=== PATIENT | female | born 1940 | race Caucasian/White ===

== ENCOUNTER → 2017-02-22 | Outpatient (CLI) | payer MEDICARE ==
[2017-02-22 08:42] LABS: CHOL/HDL RATIO 2.6; LDL/HDL RATIO 1.4 (0.5-3.0); THYROID STIMULATING HORMONE 1.89 mIU/L (0.358-3.740)
== END ==
LOC: LAB 07:58
PROVIDERS: ATTEND Family Medicine
DX: E78.5 Hyperlipidemia, unspecified (principal); E55.9 Vitamin D deficiency, unspecified; R53.83 Other fatigue
CPT/HCPCS: 36415; 80061; 82306; 84443

== ENCOUNTER 2017-06-09 07:00 | Inpatient (IN) | payer MEDICARE ==
[~2017-06-09] VITALS: Ht 162.1 cm; Wt 54.9 kg
[2017-06-09] MEDS ORDERED: SODIUM CHLORIDE FLUSH 10ML SYR IVF ONE (07:30)
[2017-06-09] MEDS ORDERED: SODIUM CHLORIDE 0.9% 1,000ML IVBOLUS ONE (07:30)
[2017-06-09] MEDS ORDERED: ONDANSETRON ODT 4 MG ONE (08:10)
[2017-06-09] MEDS ORDERED: MORPHINE SULFATE 4 MG/ML, 1ML ONE ×2 (08:11→10:04)
[2017-06-09 08:14] LABS: BASOPHILS # (AUTO) 0.03 x10^3/uL (0-0.1); BASOPHILS % (AUTO) 0 % (0-1); EOSINOPHILS # (AUTO) 0.03 x10^3/uL (0-0.4); EOSINOPHILS % (AUTO) 0 % (1-7); LYMPHOCYTES # (AUTO) 2.34 x10^3/uL (1-3.4); LYMPHOCYTES % (AUTO) 32 % (22-44); MD NO; MEAN CORPUSCULAR HEMOGLOBIN 33.3 pg (27.0-34.8); MEAN CORPUSCULAR HGB CONC 33.4 g/dL (32.4-35.8); MEAN CORPUSCULAR VOLUME 99.8 fL (80-100); MEAN PLATELET VOLUME 9.7 fL (7.4-10.4); MONOCYTES # (AUTO) 0.35 x10^3/uL (0.2-0.8); MONOCYTES % (AUTO) 5 % (2-9); NEUTROPHILS # (AUTO) 4.65 x10^3/uL (1.8-6.8); NEUTROPHILS % (AUTO) 63 % (42-75); PLATELET COUNT 184 x10^3/uL (130-400); RED CELL DISTRIBUTION WIDTH 12.9 % (9.6-15.2)
[2017-06-09 08:16] LABS: INTERNATIONAL NORMALIZED RATIO 1.09 (0.93-1.1); PROTHROMBIN TIME 11.2 Seconds (9.6-11.5)
[2017-06-09 08:21] LABS: ANION GAP 10 mmol/L (5-15); CALCIUM 8.4 mg/dL (8.5-10.1); CHLORIDE 108 mmol/L (98-107)
[2017-06-09 08:24] LABS: ALANINE AMINOTRANSFERASE 18 U/L (12-78); ALKALINE PHOSPHATASE 51 U/L (45-117); BILIRUBIN,TOTAL 0.4 mg/dL (0.2-1.0); CREATININE 0.76 mg/dL (0.55-1.02); TOTAL PROTEIN 6.5 g/dL (6.4-8.2); TROPONIN I < 0.015 ng/mL (0.000-0.045)
[2017-06-09] MEDS ORDERED: morphine SULFATE 10 MG/ML, 1ML IVPush ONE ×2 (09:30→10:00)
[2017-06-09] MEDS ORDERED: ONDANSETRON ODT 4 MG PO ONE (10:00)
[2017-06-09] MEDS ORDERED: PROPOFOL 10 MG/ML, 20ML ONE ×2 (10:51→14:56)
[2017-06-09] MEDS ORDERED: FENTANYL PF 100 MCG/2ML ONE ×3 (10:51→16:38)
[2017-06-09 11:02] LABS: CLOSTRIDIUM DIFFICILE ANTIGEN NEGATIVE; CLOSTRIDIUM DIFFICILE TOXIN NEGATIVE (Negative)
[2017-06-09] MEDS ORDERED: TEMAZEPAM 15 MG CAPSULE PO PRN (12:00)
[2017-06-09] MEDS ORDERED: ACETAMINOPHEN 325 MG TABLET PO PRN ×2 (12:00→15:30)
[2017-06-09] MEDS ORDERED: morphine SULFATE 10 MG/ML, 1ML IVPush PRN (12:00)
[2017-06-09] MEDS ORDERED: ONDANSETRON 2MG/ML, 2ML IVPush PRN ×2 (12:00→15:30)
[2017-06-09] MEDS ORDERED: hydrALAzine 20 MG/ML, 1ML IVPush PRN (12:00)
[2017-06-09 12:30] LABS: FREE T4 (FREE THYROXINE) 1.01 ng/dL (0.76-1.46); THYROID STIMULATING HORMONE 5.77 mIU/L (0.358-3.740)
[2017-06-09 13:52] VITALS: BP 115/71
[2017-06-09] MEDS ORDERED: SUCCINYLCHOLINE 20 MG/ML, 10ML ONE (14:44)
[2017-06-09] MEDS ORDERED: ONDANSETRON 2MG/ML, 2ML ONE (14:44)
[2017-06-09] MEDS ORDERED: DEXAMETHASONE 4 MG/ML, 1ML ONE (14:44)
[2017-06-09] MEDS ORDERED: CEFAZOLIN 1,000 MG ONE (14:55)
[2017-06-09] MEDS ORDERED: EPINEPHRINE 1 MG/ML, 1ML ONE (14:57)
[2017-06-09] MEDS ORDERED: BUPIVACAINE/PF 0.5% ONE (14:57)
[2017-06-09] MEDS ORDERED: PROMETHAZINE 12.5 MG SUPP PR PRN (15:30)
[2017-06-09] MEDS ORDERED: hydrALAzine 20 MG/ML, 1ML IV PRN (15:30)
[2017-06-09] MEDS ORDERED: LABETALOL 5MG/ML, 20ML IV PRN (15:30)
[2017-06-09] MEDS ORDERED: MEPERIDINE/PF 25MG/0.5ML IVPush PRN (15:30)
[2017-06-09] MEDS ORDERED: HYDROmorphone 1 MG/ML, 1ML IV PRN (15:30)
[2017-06-09] MEDS ORDERED: morphine SULFATE 10 MG/ML, 1ML IV PRN (15:30)
[2017-06-09 16:13] LABS: MICROSCOPIC NOT IND
[2017-06-09] MEDS ORDERED: BUPIVACAINE/PF-EPI 0.5% 1:200K IM ONE (16:18)
[2017-06-09 16:34] LABS: CULTURE INDICATED? NO
[2017-06-09] MEDS ORDERED: ACETAMINOPHEN 650 MG/20.3 ML UDC ONE (16:38)
[2017-06-09] MEDS ORDERED: OXYcodone 5 MG/5 ML ORAL.SOL UDC ONE ×2 (16:39→17:31)
[2017-06-09] MEDS: FENTANYL PF 100 MCG/2ML IV PRN ×3 (16:45→17:00)
[2017-06-09] MEDS: OXYcodone 5 MG/5 ML ORAL.SOL UDC PO PRN ×2 (16:50→17:32)
[2017-06-09 18:49] VITALS: BP 131/63
[2017-06-09] MEDS ORDERED: CEFAZOLIN PMX 1GM/50ML 50 ML IVPB SCH (19:30)
[2017-06-09] MEDS: HYDROcodone/APAP 5/325 TABLET PO PRN (21:57)
[2017-06-09] MEDS: SODIUM CHLORIDE 0.9% 1,000 ML IV SCH ×2 (22:06→23:07)
[2017-06-09] MEDS: CEFAZOLIN 1,000 MG in DEXTROSE 5% 50 ML IVPB SCH (23:06)
[2017-06-10 01:45] VITALS: BP 100/45
[2017-06-10] MEDS: HYDROcodone/APAP 5/325 TABLET PO PRN ×5 (02:00→20:19)
[2017-06-10] MEDS ORDERED: CEFAZOLIN 1,000 MG in DEXTROSE 5% 50 ML IVPB SCH (03:30)
[2017-06-10 05:44] LABS: BASOPHILS # (AUTO) 0.06 x10^3/uL (0-0.1); BASOPHILS % (AUTO) 1 % (0-1); EOSINOPHILS % (AUTO) 0 % (1-7); LYMPHOCYTES # (AUTO) 1.96 x10^3/uL (1-3.4); LYMPHOCYTES % (AUTO) 20 % (22-44); MD NO; MEAN CORPUSCULAR HEMOGLOBIN 33.8 pg (27.0-34.8); MEAN CORPUSCULAR HGB CONC 33.7 g/dL (32.4-35.8); MEAN CORPUSCULAR VOLUME 100.3 fL (80-100); MONOCYTES # (AUTO) 0.84 x10^3/uL (0.2-0.8); MONOCYTES % (AUTO) 8 % (2-9); NEUTROPHILS # (AUTO) 7.17 x10^3/uL (1.8-6.8); NEUTROPHILS % (AUTO) 72 % (42-75); PLATELET COUNT 165 x10^3/uL (130-400); RED BLOOD COUNT 3.21 x10^6/uL (3.82-5.3); RED CELL DISTRIBUTION WIDTH 13.3 % (9.6-15.2)
[2017-06-10 05:56] LABS: ALBUMIN 3.1 g/dL (3.4-5.0); ANION GAP 7 mmol/L (5-15); CALCIUM 7.9 mg/dL (8.5-10.1); CHLORIDE 109 mmol/L (98-107)
[2017-06-10 05:59] LABS: ALANINE AMINOTRANSFERASE 18 U/L (12-78); ALKALINE PHOSPHATASE 38 U/L (45-117); BILIRUBIN,TOTAL 0.6 mg/dL (0.2-1.0); CREATININE 0.65 mg/dL (0.55-1.02); TOTAL PROTEIN 5.5 g/dL (6.4-8.2)
[2017-06-10] MEDS: CEFAZOLIN 1,000 MG in DEXTROSE 5% 50 ML IVPB SCH (07:30)
[2017-06-10] MEDS ORDERED: PANTOPRAZOLE 40 MG IV IVPush SCH (07:30)
[2017-06-10 07:32] VITALS: BP 103/57
[2017-06-10] MEDS ORDERED: POLYETHYLENE GLYCOL 17 GM PACKET ONE (10:52)
[2017-06-10] MEDS ORDERED: OXYcodone IR 5MG TABLET ONE (10:53)
[2017-06-10] MEDS ORDERED: POLYETHYLENE GLYCOL 17 GM PACKET NG ONE (11:00)
[2017-06-10] MEDS: OXYcodone IR 5MG TABLET PO PRN ×3 (11:02→23:47)
[2017-06-10 13:40] VITALS: BP 108/62
[2017-06-10 20:18] VITALS: BP 117/61
[2017-06-11 01:04] VITALS: BP 121/67
[2017-06-11] MEDS: HYDROcodone/APAP 5/325 TABLET PO PRN ×3 (02:35→15:20)
[2017-06-11 05:38] LABS: CHLORIDE 106 mmol/L (98-107)
[2017-06-11 05:45] LABS: BASOPHILS # (AUTO) 0.04 x10^3/uL (0-0.1); BASOPHILS % (AUTO) 0 % (0-1); EOSINOPHILS # (AUTO) 0.01 x10^3/uL (0-0.4); EOSINOPHILS % (AUTO) 0 % (1-7); LYMPHOCYTES # (AUTO) 2.46 x10^3/uL (1-3.4); LYMPHOCYTES % (AUTO) 23 % (22-44); MD NO; MEAN CORPUSCULAR HEMOGLOBIN 33.5 pg (27.0-34.8); MEAN CORPUSCULAR HGB CONC 33.5 g/dL (32.4-35.8); MEAN CORPUSCULAR VOLUME 100.2 fL (80-100); MEAN PLATELET VOLUME 10.4 fL (7.4-10.4); MONOCYTES # (AUTO) 0.96 x10^3/uL (0.2-0.8); MONOCYTES % (AUTO) 9 % (2-9); NEUTROPHILS # (AUTO) 7.45 x10^3/uL (1.8-6.8); NEUTROPHILS % (AUTO) 68 % (42-75); PLATELET COUNT 156 x10^3/uL (130-400); RED BLOOD COUNT 3.49 x10^6/uL (3.82-5.3); RED CELL DISTRIBUTION WIDTH 13.7 % (9.6-15.2)
[2017-06-11 05:46] LABS: ALANINE AMINOTRANSFERASE 18 U/L (12-78); ALBUMIN 3.2 g/dL (3.4-5.0); ALKALINE PHOSPHATASE 41 U/L (45-117); ANION GAP 7 mmol/L (5-15); BILIRUBIN,TOTAL 0.4 mg/dL (0.2-1.0); CALCIUM 8.5 mg/dL (8.5-10.1); CREATININE 0.66 mg/dL (0.55-1.02)
[2017-06-11 07:20] VITALS: BP 111/67
[2017-06-11] MEDS ORDERED: PANTOPROZOLE 40MG TABLET PO SCH (07:30)
[2017-06-11] MEDS ORDERED: ONDANSETRON ODT 4 MG ONE (09:14)
[2017-06-11 12:59] VITALS: BP 123/72
[2017-06-11] MEDS ORDERED: ONDA4TAB10 PO (13:30)
[2017-06-11] MEDS ORDERED: OXYC5TAB3 PO (13:30)
[2017-06-11] MEDS ORDERED: ACET325T14 PO (13:38)
[2017-06-11] MEDS ORDERED: SIMV20TA PO (13:41)
== END 2017-06-11 17:25 | disposition home health service (06) | DRG 511 ==
LOC: ED 09:13 → EDIP 09:25 → 5SO 13:35
PROVIDERS: ADMIT Hospitalist; ATTEND Internal Medicine
PROC: 0PSK04Z Reposition Right Ulna with Internal Fixation Device, Open Approach (ICD-10-PCS; 2017-06-09)
PROC: 0PSH04Z Reposition Right Radius with Internal Fixation Device, Open Approach (ICD-10-PCS; principal; 2017-06-09 15:00)
DX: S52.591A Other fractures of lower end of right radius, initial encounter for closed fracture (principal); I50.30 Unspecified diastolic (congestive) heart failure; I27.20 Pulmonary hypertension, unspecified; G90.8 Other disorders of autonomic nervous system; S52.601A Unspecified fracture of lower end of right ulna, initial encounter for closed fracture; Z72.89 Other problems related to lifestyle; Z90.710 Acquired absence of both cervix and uterus; Z88.0 Allergy status to penicillin; V89.2XXA Person injured in unspecified motor-vehicle accident, traffic, initial encounter; Z80.49 Family history of malignant neoplasm of other genital organs; Z82.49 Family history of ischemic heart disease and other diseases of the circulatory system; Y92.410 Unspecified street and highway as the place of occurrence of the external cause
CPT/HCPCS: 25605; 36415; 70450; 71045; 76001; 80053; 81003; 83735; 83880; 84100; 84439; 84443; 84484; 85025; 85610; 87324; 93005; 93306; 93880; 96361; 96374; C1713; J0171; J0690; J1100; J2405; J2704; J3010; J3490; Q0162; C9113; J0330; J2270; J7030

== ENCOUNTER 2019-01-12 17:54 | Emergency (ER) | payer MEDICARE ==
[~2019-01-12] VITALS: Ht 162.6 cm; Wt 47.6 kg
[~2019-01-12 17:54] MED LIST: ACET325T14 PO; ONDA4TAB10 PO; OXYC5TAB3 PO; SIMV20TA PO
[2019-01-12 18:38] LABS: MICROSCOPIC AUTO
[2019-01-12 18:43] LABS: CULTURE INDICATED? YES
[2019-01-12 18:49] LABS: BASOPHILS # (AUTO) 0.03 x10^3/uL (0-0.1); BASOPHILS % (AUTO) 0 % (0-1); EOSINOPHILS # (AUTO) 0.02 x10^3/uL (0-0.4); EOSINOPHILS % (AUTO) 0 % (1-7); LYMPHOCYTES # (AUTO) 1.94 x10^3/uL (1-3.4); LYMPHOCYTES % (AUTO) 19 % (22-44); MD NO; MEAN CORPUSCULAR HEMOGLOBIN 34.3 pg (27.0-34.8); MEAN CORPUSCULAR HGB CONC 32.8 g/dL (32.4-35.8); MEAN CORPUSCULAR VOLUME 104.4 fL (80-100); MEAN PLATELET VOLUME 8.3 fL (7.4-10.4); MONOCYTES # (AUTO) 0.55 x10^3/uL (0.2-0.8); MONOCYTES % (AUTO) 5 % (2-9); NEUTROPHILS % (AUTO) 75 % (42-75); PLATELET COUNT 321 x10^3/uL (130-400); RED CELL DISTRIBUTION WIDTH 13.5 % (9.6-15.2)
[2019-01-12 18:59] LABS: ALBUMIN 4.1 g/dL (3.4-5.0); ANION GAP 6 mmol/L (5-15); CALCIUM 8.9 mg/dL (8.5-10.1); CHLORIDE 106 mmol/L (98-107); CREATININE 0.75 mg/dL (0.55-1.02)
--- NOTE | 2019-01-12 20:03 | NUR ---
Assisted in pt care. IV access obtained. Pt ready for CT. No further needs expressed. Call light in reach.
[2019-01-12] MEDS ORDERED: ONDANSETRON 2MG/ML, 2ML ONE (20:45)
[2019-01-12] MEDS ORDERED: MORPHINE SULFATE 4 MG/ML, 1ML ONE (20:46)
--- NOTE | 2019-01-12 20:56 | NUR ---
back from CT scan.awaiting result. c/o pain. medicated.
[2019-01-12] MEDS ORDERED: morphine SULFATE 10 MG/ML, 1ML IVPush ONE (21:00)
[2019-01-12] MEDS ORDERED: ONDANSETRON 2MG/ML, 2ML IVPush ONE (21:00)
--- NOTE | 2019-01-12 21:12 | NUR ---
CT scan and labs resulted. chart up for MD to re-eval.
[2019-01-12 22:04] VITALS: BP 127/73
--- NOTE | 2019-01-12 22:04 | NUR ---
re-evaluation done. patient discharged with instruction. verbalized understanding.
[2019-01-12] MEDS ORDERED: OMNIPAQUE 350 MG/ML, 100ML BOTTLE ONE (23:17)
== END 2019-01-12 22:06 | disposition home or self-care (01) ==
LOC: ED 21:16
DX: R10.31 Right lower quadrant pain (principal); R10.32 Left lower quadrant pain
CPT/HCPCS: 36415; 74177; 80048; 81001; 82040; 85025; 87086; 96374; 96375; 99284; J2270; J2405; Q9967

== ENCOUNTER 2020-11-11 15:05 | Emergency (ER) | payer MEDICARE ==
[~2020-11-11] VITALS: Ht 162.6 cm; Wt 48.0 kg
[~2020-11-11 15:05] MED LIST changes: -OXYC5TAB3 PO; +OXYC5TAB98 PO
--- NOTE | 2020-11-11 15:12 | NUR ---
ER PROVIDER AT BEDSIDE. EKG PERFORMED BY [employer] ANCHOR. STATES SHE IS FEELING MUCH BETTER AT THIS TIME.
[2020-11-11] MEDS ORDERED: SODIUM CHLORIDE FLUSH 10ML SYR IVF ONE (15:30)
[2020-11-11 15:40] LABS: BASOPHILS % (AUTO) 0 % (0-1); EOSINOPHILS % (AUTO) 0 % (1-7); LYMPHOCYTES % (AUTO) 27 % (22-44); MEAN CORPUSCULAR HEMOGLOBIN 33.9 pg (27.0-34.8); MEAN CORPUSCULAR HGB CONC 33.7 g/dL (32.4-35.8); MEAN PLATELET VOLUME 8.7 fL (7.4-10.4); MONOCYTES % (AUTO) 6 % (2-9); NEUTROPHILS % (AUTO) 66 % (42-75); PLATELET COUNT 213 x10^3/uL (130-400); RED CELL DISTRIBUTION WIDTH 12.9 % (9.6-15.2)
--- NOTE | 2020-11-11 15:42 | NUR ---
PATIENT MOVED TO ROOM 27 FOR MONITORING, REPORT TO SATYA VASQUEZ.
--- NOTE | 2020-11-11 15:42 | NUR ---
REPORT FROM DANYELLE HERNADEZ.
[2020-11-11 15:52] LABS: ANION GAP 6 mmol/L (5-15); CALCIUM 8.8 mg/dL (8.5-10.1); CHLORIDE 108 mmol/L (98-107); CREATININE 0.81 mg/dL (0.55-1.02)
[2020-11-11 15:58] LABS: TROPONIN I < 0.015 ng/mL (0.000-0.045)
[2020-11-11 17:19] VITALS: BP 116/76
== END 2020-11-11 17:20 | disposition home or self-care (01) ==
LOC: ED 17:15
DX: R55 Syncope and collapse (principal)
CPT/HCPCS: 36415; 71045; 80048; 82040; 83735; 84484; 85025; 93005; 99285